=== PATIENT | male | born 1985 | race African-American/Black ===

== ENCOUNTER 2019-07-25 20:07 | Emergency (ER) | payer MEDICAID ==
[~2019-07-25] VITALS: Ht 177.8 cm; Wt 68.5 kg
[2019-07-25 20:16] VITALS: BP 124/66
--- NOTE | 2019-07-25 20:20 | NUR ---
ED Nurse Note: Pt reports bilat testicular pain and swilling x3days, denies trauma although mentioned he worked out for 5hrs 2 weeks ago with strenuous exercise. VSS
--- NOTE | 2019-07-25 20:37 | NUR ---
ED Nurse Note: Pt down to US
[2019-07-25 20:46] LABS: APPEARANCE,URINE CLEAR; BILIRUBIN, URINE NEGATIVE (NEGATIVE); GLUCOSE, URINE (UA) NEGATIVE (NEGATIVE); KETONES,URINE 1+ (NEGATIVE); LEUKOCYTE ESTERASE ,URINE 1+ (NEGATIVE); NITRITE,URINE NEGATIVE (NEGATIVE); PH,URINE 6 (4.5-8.0); PROTEIN,URINE 2+ (NEGATIVE); UROBILINOGEN,URINE 4 MG/DL (0.0-1.0)
[2019-07-25 20:50] LABS: COLOR,URINE YELLOW
--- NOTE | 2019-07-25 20:50 | Emergency Room Report ---
History of Present Illness General Chief Complaint: Male Urogenital Problems Source: Patient Present Illness HPI Disclaimer: Please note that this report is being documented using DRAGON technology. This can lead to erroneous entry secondary to incorrect interpretation by the dictating instrument. HPI: 34-year-old male with history of HIV no longer compliant with antiretroviral therapy presents for evaluation of testicular pain and swelling. Has noted pain in the right testicle for several days as well as intermittent stinging while passing urine. He also notes a yellow discharge from the urethral meatus over the past 24 hours. Denies any hematuria. Denies recent sexual contact within the past few months. He states he is no longer taking antiretrovirals because he has not been able to get to his doctor's appointment for a refill. He denies hematuria, flank pain, abdominal pain, diarrhea, vomiting or fevers. Denies any chest pain, cough, shortness of breath or URI symptoms. PMH: HIV PSH: Denies Allergies: Denies Social Hx: Denies drug or alcohol abuse Allergies: Coded Allergies: No Known Allergies (Unverified , 07/25/19) Nursing Documentation-PMH Past Medical History: No Stated History Review of Systems All Other Systems: negative except mentioned in HPI Physical Exam Vital Signs Date Time Temp Pulse Resp B/P (MAP) Pulse Ox O2 Delivery O2 Flow Rate FiO2 07/25/19 20:03 98.2 94 15 124/66 (85) 100 Room Air General: Awake and alert, no acute distress HEENT: NC/AT. EOMI. Cardiovascular: RRR. S1 and S2 normal. No murmur appreciated Resp: Normal work of breathing. No cough, wheezing or crackles appreciated Abdomen: Abdomen is soft, nondistended. Nontender : The right testicle is high riding as compared to the left. Tender to palpation circumferentially. No significant edema in the scrotum. There is tenderness around the epididymis. The left testicle is only mildly tender, not enlarged, in anatomic position. Patient is circumcised, no blood or discharge from the urethral meatus. No defect in the abdominal wall was palpated Skin: Intact. No abrasions, laceration or rash over the exposed skin MSK: Normal tone and bulk. Moving all extremities. No obvious deformity. Neuro: Awake and alert. Mentating appropriately. Medical Decision Making Diagnostic Impression: Primary Impression: Urethritis ER Course Is a 34-year-old male with history of HIV presenting for evaluation of several days of right-sided testicular pain as well as dysuria. Differential includes was not limited to cystitis, pyelonephritis, nephrolithiasis, epididymitis, STI , testicular torsion. Of these, testicular torsion must be ruled out emergently. Will obtain an ultrasound of the scrotum and a urinalysis. Laboratory Tests Test 07/25/19 20:30 Urine Color Yellow Urine Appearance Clear Urine pH 6 (4.5-8.0) Urine Specific Naylor 1.015 (1.005-1.035) Urine Protein 2+ (NEGATIVE) H Urine Glucose (UA) Negative (NEGATIVE) Urine Ketones 1+ (NEGATIVE) H Urine Blood Negative (NEGATIVE) Urine Nitrite Negative (NEGATIVE) Urine Bilirubin Negative (NEGATIVE) Urine Urobilinogen 4 MG/DL (0.0-1.0) H Urine Leukocyte Esterase 1+ (NEGATIVE) H Urine RBC 0-2 /HPF (0 - 0) H Urine WBC 2-4 /HPF (0 - 0) Urine Squamous Epithelial Cells Occasional /LPF Urine Bacteria Few /HPF (NONE) Urine Mucus Moderate /LPF (NONE/OCC) H Reevaluation Time: 21:24 Last Vital Signs Date Time Temp Pulse Resp B/P (MAP) Pulse Ox O2 Delivery O2 Flow Rate FiO2 07/25/19 20:16 98.2 82 15 124/66 100 Room Air Reevaluation Impression Ultrasound was unremarkable for testicular torsion or epididymitis. Good flow bilaterally without other pathology noted. This is a preliminary report which will be interpreted by the radiologist tomorrow. Urinalysis does not show obvious urinary tract infection With only few bacteria and 1+ leukocyte esterase. Given the urethral discharge the patient be treated for urethritis presumed sexual transmitted infection. Counseled on need for barrier protection and to restart antiretrovirals. He will be given ceftriaxone and azithromycin in the emergency department prior to departure and strongly encouraged to follow-up with his PMD for repeat CD4 testing, to discuss his medication noncompliance, reevaluation. We discussed reasons to return to the emergency department. He understands and agrees with this treatment plan. Disposition: HOME, SELF-CARE Condition: Stable Scripts Raltegravir (Isentress) 400 Mg Tablet 400 MG ORAL EVERY 12 HOURS for 30 Days, #60 TAB Prov: Bahman Estrada MD 07/25/19 Emtricitabine/Tenofovir (Truvada 200 mg-300 mg Tablet) 1 Each Tablet 1 TAB ORAL DAILY for 30 Days, #30 TAB Prov: Bahman Estrada MD 07/25/19 Bahman Estrada MD Jul 25, 2019 20:50
[2019-07-25] MEDS ORDERED: Lidocaine 1% MPF 10mg/ml 5ml INJ ONE (21:15)
[2019-07-25] MEDS ORDERED: Azithromycin 250mg tab ORAL ONE (21:15)
[2019-07-25] MEDS ORDERED: ISENTRESS400 MG ORAL (21:23)
[2019-07-25] MEDS ORDERED: TRUVADA1 TAB ORAL (21:23)
[2019-07-25 21:30] VITALS: BP 124/66
--- NOTE | 2019-07-25 21:30 | NUR ---
ED Discharge Note: PRESCRIPTIONS AND DISCHARGE PAPERWORK EXPLAINED TO PT. PT VERBALIZES UNDERSTANDING AND ALL QUESTIONS ANSWERED. PRESCRIPTIONS AND DISCHARGE PAPERWORK GIVEN TO PT AND ID WRISTBAND REMOVED. PT WALKED OUT OF ER WITH STEADY GAIT AND ALL BELONGINGS
--- NOTE | 2019-07-25 22:00 | Diagnostic Imaging Report ---
EXAM: US Scrotum CLINICAL HISTORY: PAIN TECHNIQUE: Real-time ultrasound of the scrotum with color Doppler and image documentation. COMPARISON: No relevant prior studies available. FINDINGS: Right testicle: Right testis measures about 3.9 x 1.8 x 3.4 cm. No torsion. Left testicle: Left testis measures about 4.4 x 1.6 x 2.7 cm. No torsion. Epididymides: Unremarkable. Scrotum: Left varicocele. IMPRESSION: Left varicocele.
== END 2019-07-25 21:30 | disposition home or self-care (01) ==
LOC: EDBD 20:07 → EMR 21:09
DX: N34.2 Other urethritis (principal); B20 Human immunodeficiency virus [HIV] disease
CPT/HCPCS: 76870; 81003; 96372; 99284; J0696; Q0144